=== PATIENT | male | born 1945 | race Caucasian/White ===

== ENCOUNTER 2025-06-11 17:00 | Inpatient (IN) | payer OTHER ==
[2025-06-11] MEDS ORDERED: ASPIRIN 81 MG CHEWABLE TABLET ONE (17:24)
[2025-06-11 17:44] LABS: Absolute Lymphocytes (CBC) 1.9 K/uL (0.7-4.9); Hematocrit 38.6 % (39.6-49.0); Hemoglobin 13.2 g/dL (13.6-17.9); MCH 31.4 pg (27.0-35.0); MCHC 34.2 g/dL (32.0-36.0); MCV 91.9 fL (80-100); MPV 7.7 fL (7.6-11.3); Nucleated RBC Absolute Count 0.0 (0-0); Nucleated Red Blood Cells % 0.1 % (0-0); RBC Red Blood Cell Count 4.20 M/uL (4.33-5.43); White Blood Count 6.80 thou/uL (4.3-10.9)
[2025-06-11 18:00] LABS: ALT/SGPT 33.0 U/L (16-61); AST/SGOT 18.0 U/L (15-37); Albumin 3.4 g/dL (3.4-5.0); Albumin/Globulin Ratio 1.2 (1.1-1.8); Alkaline Phosphatase 80.0 U/L (45-117); Anion Gap 8.7 mEq/L (5.0-15.0); BUN Blood Urea Nitrogen 27.0 mg/dL (7-18); Bilirubin Indirect, Calculated 0.3 mg/dL (0.2-0.8); Globulin 2.9 g/dL (2.3-3.5); Glucose Level 93.0 mg/dL (74-106); Magnesium 2.1 mg/dL (1.6-2.4); NT PRO-BNP 274.0 pg/mL (<450); Potassium 4.7 mEq/L (3.5-5.1); Troponin High Sensitivity 14.6 pg/mL (<58.9)
--- NOTE | 2025-06-11 18:20 | ER ---
Nurse's Notes [facility] Name: Peter Hidalgo Age: 79 yrs Sex: Male : 1945 Arrival Date: 06/11/2025 Time: 17:00 Bed 15 Private MD: Diagnosis: Chest pain, unspecified;Bradycardia, unspecified Presentation: 06/11 17:12 Chief complaint: Patient states: I started having intermittent chest pain this morning. jb4 Last night my b/p was in the 190's I took my clonidine to try and bring it down. My main concern today is my blood pressure fluctuating and going so high. Coronavirus screen: At this time, the client does not indicate any symptoms associated with coronavirus-19. Ebola Screen: No symptoms or risks identified at this time. Initial Sepsis Screen: Does the patient meet any 2 criteria? No. Patient's initial sepsis screen is negative. Does the patient have a suspected source of infection? No. Patient's initial sepsis screen is negative. Risk Assessment: Do you want to hurt yourself or someone else? Patient reports no desire to harm self or others. Onset of symptoms was June 10, 2025. Transition of care: patient was not received from another setting of care. 17:12 Method Of Arrival: Ambulatory jb4 17:12 Acuity: NORMA 2 jb4 Historical: - Allergies: 17:14 PCN; jb4 17:14 lincomycin; jb4 - PMHx: 17:14 HTN; gout; jb4 - PSHx: 17:14 Quadruple bypass; heart stents x 3; jb4 - Immunization history:: Adult Immunizations up to date. - Infectious Disease History:: Denies. - Social history:: Smoking status: Patient denies any tobacco usage or history of. Screenin:43 [facility] ED Fall Risk Assessment (Adult) History of falling in the last 3 months, me1 including since admission No falls in past 3 months (0 pts) Confusion or Disorientation No (0 pts) Intoxicated or Sedated No (0 pts) Impaired Gait No (0 pts) Mobility Assist Device Used No (0 pt) Altered Elimination No (0 pt) Score/Fall Risk Level 0 - 2 = Low Risk Maintained a safe environment, Provided non-skid footwear, Hourly rounding (assess needs \T\ fall precautionary measures) done. Abuse screen: Denies threats or abuse. Nutritional screening: No deficits noted. Tuberculosis screening: No symptoms or risk factors identified. Assessment: 17:43 General: Appears in no apparent distress. comfortable, Behavior is calm, cooperative, me1 appropriate for age, Reports I started having intermittent chest pain this morning. Last night my b/p was in the 190's I took my clonidine to try and bring it down. My main concern today is my blood pressure fluctuating and going so high. Pain: Complains of pain in anterior aspect of left upper chest Pain does not radiate. Pain currently is 0 out of 10 on a pain scale. at worst was 3 out of 10 on a pain scale. Quality of pain is described as pinching Pain began this morning Is intermittent. Neuro: Level of Consciousness is awake, alert, obeys commands, Oriented to person, place, time, situation, Appropriate for age. Cardiovascular: Reports chest pain, shortness of breath, Patient's skin is warm and dry. Respiratory: Reports shortness of breath on exertion Airway is patent Respiratory effort is even, unlabored, Respiratory pattern is regular, symmetrical. GI: No signs and/or symptoms were reported involving the gastrointestinal system. : No signs and/or symptoms were reported regarding the genitourinary system. EENT: No signs and/or symptoms were reported regarding the EENT system. Derm: Skin is intact, is healthy with good turgor, Skin is normal. Musculoskeletal: Circulation, motion, and sensation intact. Range of motion: intact in all extremities. 19:03 General: received report from staff sonographer, all questions answered. kt5 19:17 Reassessment: Patient appears in no apparent distress at this time. Patient and/or kt5 family updated on plan of care and expected duration. Pain level reassessed. Patient is alert, oriented x 3, equal unlabored respirations, skin warm/dry/pink. pt eating and drinking w/o complications Patient denies pain at this time. Patient states feeling better. Patient states symptoms have improved. 19:24 General: admit md at for eval. kt5 20:49 Reassessment: Patient appears in no apparent distress at this time. Patient and/or kt5 family updated on plan of care and expected duration. Pain level reassessed. Patient is alert, oriented x 3, equal unlabored respirations, skin warm/dry/pink. Patient denies pain at this time. Patient states feeling better. Patient states symptoms have improved. Vital Signs: 17:12 BP 137 / 48; Pulse 38; Resp 16; Temp 97.6(O); Pulse Ox 97% on R/A; Weight 102.06 kg jb4 (R); Height 5 ft. 10 in. (R); 17:45 BP 119 / 46; Pulse 38; Resp 12; Pulse Ox 98% ; me1 18:45 BP 150 / 53; Pulse 36; Resp 16; Pulse Ox 98% ; me1 19:18 BP 164 / 54; Pulse 45; Resp 18 S; Pulse Ox 97% on R/A; kt5 20:49 BP 137 / 96; Pulse 40; Resp 18 S; Temp 98.6; Pulse Ox 95% on R/A; Pain 0/10; kt5 17:12 Body Mass Index 32.28 (102.06 kg, 177.8 cm) jb4 20:49 Pain Scale: Adult kt5 18:45 ROJAS Jimenez aware of bradycardia down to mid 30s. al1 ED Course: 17:02 Patient arrived in ED. al6 17:03 Cyn Beatty, RASC is PHCP. kb 17:03 Radha Brian MD is Attending Physician. kb 17:14 Triage completed. jb4 17:14 Arm band placed on right wrist. jb4 17:22 Yaneli Valdez, RN is Primary Nurse. me1 17:23 EKG done, by ED staff, reviewed by Cyn DRAKE. me1 17:26 Initial lab(s) drawn, by al, sent to lab. Inserted saline lock: 20 gauge in left rk3 antecubital area, using aseptic technique. Blood collected. Flushed with 10 mL NS. 17:43 Patient has correct armband on for positive identification. Bed in low position. Call al1 light in reach. Side rails up X2. Provided Education on: POC. Verbalized understanding.. Client placed on continuous cardiac and pulse oximetry monitoring. NIBP monitoring applied. director geothermal operations on. Pulse ox on. NIBP on. 17:43 No provider procedures requiring assistance completed. Patient maintains SpO2 me1 saturation greater than 95% on room air. 18:01 XRAY Chest (1 view) In Process Unspecified. EDMS 18:19 Holden, Azfar, MD is Hospitalizing Provider. kb Administered Medications: 17:30 Drug: Aspirin PO Chewable Tablet 324 mg PO once; 81 mg tablets x 4 Route: PO; me1 17:42 Follow up: Response: No adverse reaction me1 Medication: 17:43 VIS not applicable for this client. me1 Outcome: 18:19 Decision to Hospitalize by Provider. kb 21:16 Patient left the ED. kt5 Signatures: Dispatcher [employer] EDCyn Marie, HEAT TREAT OPERATOR-C HEAT TREAT OPERATOR-Armen Araiza, RN RN jb4 Yaneli Valdez, RN RN me1 Cecily Baez al6 Jeanne Porras rk3 Kathy العراقي, RN RN kt5 Corrections: (The following items were deleted from the chart) 17:43 17:12 Chief complaint: Patient states: I started having intermittent chest pain this me1 morning. Last night my b/p was in the 190's I took my clonidine to try and bring it down. My main concern today is my blood pressure fluctuating and going so high. jb4
--- NOTE | 2025-06-11 18:20 | EDPHYS ---
Physician Documentation [facility] Name: Peter Hidalgo Age: 79 yrs Sex: Male : 1945 Arrival Date: 06/11/2025 Time: 17:00 Bed 15 Private MD: ED Physician Radha Brian HPI: 06/11 17:04 This 79 yrs old Male presents to ER via Unassigned with complaints of High Blood kb Pressure, Chest Pain. 17:04 Pt is a 79 year old male who presents for high blood pressure that started last night, kb up to 190 systolic. Has clonidine to take as needed so he took that last night and today. Reports bilateral lower extremity swelling for 5 days. [facility]CP [facility]. Reports intermittent chest pain today, as well as shortness of breath and weakness. . Historical: - Allergies: 17:14 PCN; jb4 17:14 lincomycin; jb4 - PMHx: 17:14 HTN; gout; jb4 - PSHx: 17:14 Quadruple bypass; heart stents x 3; jb4 - Immunization history:: Adult Immunizations up to date. - Infectious Disease History:: Denies. - Social history:: Smoking status: Patient denies any tobacco usage or history of. ROS: 17:06 Constitutional: As per HPI kb Exam: 17:27 Constitutional: This is a well developed, well nourished patient who is awake, alert, kb and in no acute distress. Head/Face: Normocephalic, atraumatic. ENT: Moist Mucous membranes Respiratory: Respirations even and unlabored. No increased work of breathing. Talking in full sentences Abdomen/GI: Soft, non-tender. No distention Skin: Warm, dry with normal turgor. Normal color. MS/ Extremity: Pulses equal, no cyanosis. Neurovascular intact. Full, normal range of motion. Neuro: Awake and alert, GCS 15, oriented to person, place, time, and situation. 17:27 Cardiovascular: Rate: bradycardic, 17:27 ECG was reviewed by the Attending Physician. Vital Signs: 17:12 BP 137 / 48; Pulse 38; Resp 16; Temp 97.6(O); Pulse Ox 97% on R/A; Weight 102.06 kg jb4 (R); Height 5 ft. 10 in. (R); 17:45 BP 119 / 46; Pulse 38; Resp 12; Pulse Ox 98% ; me1 18:45 BP 150 / 53; Pulse 36; Resp 16; Pulse Ox 98% ; me1 19:18 BP 164 / 54; Pulse 45; Resp 18 S; Pulse Ox 97% on R/A; kt5 20:49 BP 137 / 96; Pulse 40; Resp 18 S; Temp 98.6; Pulse Ox 95% on R/A; Pain 0/10; kt5 17:12 Body Mass Index 32.28 (102.06 kg, 177.8 cm) jb4 20:49 Pain Scale: Adult kt5 18:45 ROJAS Jimenez aware of bradycardia down to mid 30s. me1 MDM: 17:04 Medical Screening Exam initiated kb 18:17 Differential diagnosis: hypertensive crisis, Malignant HTN, acute mi, arrhythmia. Data kb reviewed: vital signs, nurses notes. Consideration of Admission/Observation Patient was admitted/placed on observation. Escalation of care including admission/observation considered. Management of patient was discussed with the following: Hospitalist: CORINNA Peacock accepts pt for admission under Dr Hatch. Print Shop Chief Clerk: Dr Roth accepts pt for consult. "DC clonidine and observe". Historians other than the Patient: Spouse/Significant Other: . Counseling: I had a detailed discussion with the patient and/or guardian regarding the historical points, exam findings, and any diagnostic results supporting the discharge/admit diagnosis, lab results, radiology results, the need for further work-up and treatment in the hospital. 06/11 17:09 Order name: Basic Metabolic Panel; Complete Time: 18:01 kb 06/11 17:09 Order name: CBC with Diff; Complete Time: 17:49 kb 06/11 17:09 Order name: LFT's; Complete Time: 18:01 kb 06/11 17:09 Order name: Magnesium; Complete Time: 18:01 kb 06/11 17:09 Order name: NT PRO-BNP; Complete Time: 18:01 kb 06/11 17:09 Order name: Troponin HS; Complete Time: 18:01 kb 06/11 20:07 Order name: Basic Metabolic Panel EDMS 06/11 20:07 Order name: Basic Metabolic Panel EDMS 06/11 20:07 Order name: CBC with Automated Diff EDMS 06/11 20:07 Order name: CBC with Automated Diff EDMS 06/11 20:07 Order name: Troponin High Sensitivity [facility] 06/11 20:07 Order name: Troponin High Sensitivity [facility] 06/11 20:07 Order name: Troponin High Sensitivity [facility] 06/11 20:07 Order name: Troponin High Sensitivity [facility] 06/11 20:07 Order name: Troponin High Sensitivity [facility] 06/11 17:09 Order name: XRAY Chest (1 view); Complete Time: 18:54 kb 06/11 20:07 Order name: Echo with Doppler [facility] 06/11 20:07 Order name: EKG Electrocardiogram [facility] 06/11 20:07 Order name: EKG Electrocardiogram [facility] 06/11 20:07 Order name: EKG Electrocardiogram [facility] 06/11 20:07 Order name: EKG Electrocardiogram [facility] 06/11 17:09 Order name: Cardiac monitoring; Complete Time: 17:30 kb 06/11 17:09 Order name: EKG - Nurse/Tech; Complete Time: 17:22 kb 06/11 17:09 Order name: IV Saline Lock; Complete Time: 17:27 kb 06/11 17:09 Order name: Labs collected and sent; Complete Time: 17:27 kb 06/11 17:09 Order name: O2 Per Protocol; Complete Time: 17:22 kb 06/11 17:09 Order name: O2 Sat Monitoring; Complete Time: 17:22 kb EC:27 Rate is 39 beats/min. Rhythm is regular. QRS [place] is Normal. [place] interval is prolonged kb at 294 msec. QRS interval is normal at 134 msec. QT interval is normal at 371 msec. Administered Medications: 17:30 Drug: Aspirin PO Chewable Tablet 324 mg PO once; 81 mg tablets x 4 Route: PO; me1 17:42 Follow up: Response: No adverse reaction me1 Disposition Summary: 06/11/25 18:19 Hospitalization Ordered Notes: Hospitalization Status: Observation kb Provider: Jhony Hatch Location: Telemetry/MedSurg (observation) kb Condition: Stable kb Problem: new kb Symptoms: are unchanged kb Bed/Room Type: Standard Room Assignment: 230(06/11/25 20:00) rv1 Diagnosis - Chest pain, unspecified kb - Bradycardia, unspecified kb Forms: - Medication Reconciliation Form kb - SBAR form kb - Leadership Thank You Letter kb Signatures: Dispatcher [employer] EDCyn Marie TILE ERECTOR-C TILE ERECTOR-Ckb Armen Patel, RN RN jb4 Deborah Kinney rv1 Yaneli Valdez, RN RN me1 Corrections: (The following items were deleted from the chart) 17:10 17:10 BASIC METABOLIC PANEL+C.LAB.BRZ ordered. EDMS EDMS 17:10 17:10 CBC+H.LAB.BRZ ordered. EDMS EDMS 17:10 17:10 HEPATIC FUNCTION+C.LAB.BRZ ordered. EDMS EDMS 17:10 17:10 MAGNESIUM+C.LAB.BRZ ordered. EDMS EDMS 17:10 17:10 PROBNP+C.LAB.BRZ ordered. EDMS EDMS 17:10 17:10 Troponin High Sensitivity+C.LAB.BRZ ordered. EDMS EDMS 17:10 17:10 Chest Single View+RAD.RAD.BRZ ordered. EDMS EDMS 20:00 18:19 kb rv1
--- NOTE | 2025-06-11 18:42 | RAD REPORT ---
EXAMINATION: ONE VIEW CHEST XR CLINICAL INDICATION: Male, 79 years old.,CHEST PAIN TECHNIQUE: Frontal chest projection is submitted. Examination is limited by patient positioning and t echnique. COMPARISON: 05/19/2023 FINDINGS: The lungs are grossly clear although suboptimal inspiratory effort somewhat limits evaluation. No pn eumothorax or sizable effusion. The heart is moderate normal in size. Mediastinal contours are unchanged with sequelae of CABG. IMPRESSION: No acute intrathoracic abnormalities.
[2025-06-11] MEDS ORDERED: NITROGLYCERIN 0.4 MG/TAB SL PRN (20:01)
--- NOTE | 2025-06-11 20:05 | P.HP ---
Certification for Inpatient Patient admitted to: Observation With expected LOS: <2 Midnights Patient will require the following post-hospital care: None Practitioner: I am a practitioner with admitting privileges, knowledge of patient current condition, hospital course, and medical plan of care. Services: Services provided to patient in accordance with Admission requirements found in Title 42 Section 412.3 of the Code of Federal Regulations Patient History Date of Service: 06/11/25 Reason for admission: Chest pain, bradycardia, Flutter, and hypertension. History of Present Illness: Patient is a pleasant [id number] male, with past medical history of essential hypertension, gout, BPH, CAD, myocardial infarction with coronary stents x 3, who presents to the ER complaining of elevated blood pressure last night of 190/69, heart Flutter, and chest pain. Patient states last night he was not feeling well so he checked his blood pressure was 190/69, states he took all of his blood pressure medications, states he rechecked his BP today and was much better. States this morning he started feeling like his heart was fluttering, with associated chest pain and no shortness of breath. Patient denies of any prior history of Aflutter or atrial fibrillation. Patient states his chest pain continued with the fluttering throughout most of the day which then prompted him to report to ER. Patient states when he walks at times he has some shortness of breath and feels dizzy with no syncope. Patient describes his chest pain as tight and initial pain scale of 6/10. While in ER patient heart rate was bradycardia going down at times to 30s to the 40s but remains asymptomatic. According to report received from ER SEAT COVER CUTTER, she states she contacted rn supplemental Dr. Roth regarding patient chest pain and bradycardia, he instructed her to discontinue patient clonidine. During admission assessment, patient was fully awake, alert and oriented x 3, denies of any chest pain, or shortness of breath at this time. Patient heart rate still in the 30s at times 40s to 50s, and remains asymptomatic at this time. Patient initial troponin is normal, EKG with no ST elevation. Course in ER. Impression: No acute intrathoracic abnormalities. Allergies Penicillins Allergy (Verified 06/11/25 21:49) Itching/Hives/Rash Home Medications: Allopurinol 300 mg PO BREAKFAST 06/11/25 Aspirin 81 mg PO BREAKFAST 06/11/25 Doxycycline Hyclate 1 cap PO BEDTIME 06/11/25 Nifedipine [Nifedipine ER] 30 mg PO BREAKFAST 06/11/25 Olmesartan Medoxomil 40 mg PO BEDTIME 06/11/25 Tamsulosin [Flomax] 0.4 mg PO BEDTIME 06/11/25 - Past Medical/Surgical History -: Gout. -: Myocardial infarction. -: CAD. -: Essential hypertension. -: BPH. -: Right knee arthroplasty. -: Right wrist surgery. -: Stents placement x 3. -: Quadruple bypass. - Family History Mother -: Heart disease Brother -: Heart disease - Social History Smoking Status: Never smoker Alcohol use: Yes CD- Drugs: No Caffeine use: Yes Place of Residence: Home Review of Systems 10-point ROS is otherwise unremarkable Cardiovascular: Chest Pain, Other (Flutter, hypertensive, bradycardia.) Gastrointestinal: Nausea, Vomiting, Abdominal Pain Physical Examination - Physical Exam General: Alert, In no apparent distress, Oriented x3, Cooperative HEENT: Atraumatic, Normocephalic, PERRLA, Mucous membr. moist/pink, Sclerae nonicteric Neck: Supple, 2+ carotid pulse no bruit, No LAD, Without JVD or thyroid abnormality Respiratory: Clear to auscultation bilaterally, Normal air movement Cardiovascular: No edema, Normal pulses, Regular rate/rhythm, Normal S1 S2, No gallops, No rubs, Systolic murmur Capillary refill: <2 Seconds Gastrointestinal: Normal bowel sounds, Soft and benign, W/out hepatomegaly, No ascites, No tenderness, No masses, No rebound, No guarding, Distended (Distended secondary to obesity.) Musculoskeletal: No clubbing, No swelling, No contractures, No erythema, No tenderness, No warmth Integumentary: No rashes, No breakdown, No significant lesion, No tenderness/swelling, No erythema, No warmth, No cyanosis Neurological: Normal gait, Normal speech, Normal strength at 5/5 x4 extr, Normal tone, Sensation intact, Cranial nerves 3-12 intact, Normal reflexes 2+, Normal affect, Other (Hard of hearing. Uses a hearing aid.) Lymphatics: No axilla or inguinal lymphadenopathy - Studies Laboratory Data (last 24 hrs) 06/11/25 06/11/25 17:21 17:21 WBC 6.80 Hgb 13.2 L Hct 38.6 L Plt Count 206 Sodium 142 Potassium 4.7 BUN 27 H Creatinine 1.28 Glucose 93 Magnesium 2.1 Total Bilirubin 0.5 AST 18 ALT 33 Alkaline Phosphatase 80 Male Exam - Male Exam Inguinal exam: No hernias, Inguinal lymph node Prostate: Other (BPH.) Assessment and Plan - Plan Patient is a 79-year-old male who reports to ER complaining of chest pain, elevated blood pressure, Aflutter, and patient also bradycardia. (1)Chest pain, bradycardia, and hypertension. Patient is asymptomatic bradycardia -Consult rn supplemental. -Nitro sublingual 0.4 mg as needed every 5 minutes x 3. -Troponin every 8 hours x 3. -EKG every 8 hours x 3. -Order echocardiogram. -Will avoid morphine IV administered at this time due to patient bradycardia. -Continue nifedipine XL 30 mg p.o. daily. -Continue olmesartan 40 mg p.o. at bedtime. -Telemetry. (2)Chronic gout. -Continue allopurinol 30 mg p.o. daily. (3)Chronic BPH. -Continue tamsulosin 0.4 mg p.o. nightly. (4) DVT prophylaxis -Lovenox 40 mg subcu daily. (4)Explained entire treatment plan to the patient and present at the bedside, solicited questions answered and voiced understanding. Discharge Plan: Home Plan to discharge in: 72 Hours - Advance Directives Does patient have a Living Will: No Does patient have a Durable POA for Healthcare: No - Code Status/Comfort Care Code Status Assessed: Yes Code Status: Full Code Critical Care: No Time Spent Managing Pts Care (In Minutes): 55
[2025-06-11 21:54] VITALS: O2SAT 95
[2025-06-12] MEDS: HYDRALAZINE HCL 20 MG/ML VIAL IV ONE (04:24)
[2025-06-12 04:41] VITALS: BMI 32.3
[2025-06-12 06:02] LABS: Absolute Lymphocytes (CBC) 1.4 K/uL (0.7-4.9); Hematocrit 40.8 % (39.6-49.0); Hemoglobin 14.0 g/dL (13.6-17.9); MCH 31.5 pg (27.0-35.0); MCHC 34.2 g/dL (32.0-36.0); MCV 92.1 fL (80-100); MPV 7.8 fL (7.6-11.3); Nucleated RBC Absolute Count 0.0 (0-0); Nucleated Red Blood Cells % 0.0 % (0-0); RBC Red Blood Cell Count 4.43 M/uL (4.33-5.43); White Blood Count 5.20 thou/uL (4.3-10.9)
[2025-06-12 06:18] LABS: Anion Gap 8.2 mEq/L (5.0-15.0); BUN Blood Urea Nitrogen 24.0 mg/dL (7-18); Glucose Level 88.0 mg/dL (74-106); Potassium 4.2 mEq/L (3.5-5.1)
[2025-06-12] MEDS: NIFEDIPINE XL 30 MG TABLET PO SCH (08:00)
[2025-06-12] MEDS: ENOXAPARIN 40 MG/0.4 ML SQ SCH (09:10)
[2025-06-12] MEDS: ASPIRIN EC 81 MG TAB PO SCH (09:10)
--- NOTE | 2025-06-12 10:24 | P.PN ---
Date of Service: 06/12/25 Subjective: Continue with bradycardia, HR 30-40s Asymptomatic denies chest pain or shortness of breath Physical Exam: GEN: Alert, oriented, NAD CV: Bradycardia, no edema Pulm: Nonlabored respirations on room air, clear bilaterally ABD: soft, nontender, nondistended Neuro: Normal speech, normal affect Problem List: Chest pain Bradycardia CAD s/p PCI x3 and CABG Hx a-fib/a-flutter Hypertension BPH Hx gout on admission, presents with chest pain associated with fluttering sensation. In ER HR was noted to be in 30-40s in the ED. Asymptomatic. Unclear etiology. Could be medication related. Cardiology consulted Hold Clonidine, nifedipine. Avoid AVN blocking agents add hydralazine 50mg q8h consider 10mg amlodipine if BP still high Monitor BP/HR closely Trend troponins - negative x2 so far Echo ordered to eval EF / stenosis Resume home valsartan, Flomax, allopurinol VTE: Lovenox Code: Full Dispo: Home, ~1 day Pending Stable BP/HR after medication adjustments Time Spent Managing Pts Care (In Minutes): 55
--- NOTE | 2025-06-12 11:36 | P.CNS ---
Date of Consult: 06/12/25 Chief Complaint: Chest pain, bradycardia, Flutter, and hypertension. History of Present Illness: Patient with PMH of CAD s/p CABG x4 followed by PCI presented with high BP and flutter sensation in chest, cardiology consulted for bradycardia, patient denies chest pain, no breathing problems, no syncope. Allergies Penicillins Allergy (Verified 06/11/25 21:49) Itching/Hives/Rash Home medications list reviewed: Yes Home Medications: Allopurinol 300 mg PO BREAKFAST 06/11/25 Aspirin 81 mg PO BREAKFAST 06/11/25 Doxycycline Hyclate 1 cap PO BEDTIME 06/11/25 Nifedipine [Nifedipine ER] 30 mg PO BREAKFAST 06/11/25 Olmesartan Medoxomil 40 mg PO BEDTIME 06/11/25 Tamsulosin [Flomax] 0.4 mg PO BEDTIME 06/11/25 - Past Medical/Surgical History -: Gout. -: Myocardial infarction. -: CAD. -: Essential hypertension. -: BPH. -: Right knee arthroplasty. -: Right wrist surgery. -: Stents placement x 3. -: Quadruple bypass. - Family History Mother Medical History: Heart disease Brother Medical History: Heart disease - Social History Alcohol use: Yes CD- Drugs: No Caffeine use: Yes Place of Residence: Home Review of Systems 10-point ROS is otherwise unremarkable Physical Examination Temp Pulse Resp BP Pulse Ox 97.6 F 36 L 20 175/74 H 96 06/12/25 08:00 06/12/25 08:00 06/12/25 08:00 06/12/25 08:00 06/12/25 08:00 General: Alert, In no apparent distress HEENT: Atraumatic, PERRLA, Mucous membr. moist/pink, EOMI, Sclerae nonicteric Neck: Supple, 2+ carotid pulse no bruit, No LAD, Without JVD or thyroid abnormality Respiratory: Clear to auscultation bilaterally, Normal air movement Cardiovascular: Regular rate/rhythm, Normal S1 S2 Gastrointestinal: Normal bowel sounds, No tenderness Musculoskeletal: No tenderness Integumentary: No rashes Neurological: Normal gait, Normal speech, Normal tone, Normal affect Lymphatics: No axilla or inguinal lymphadenopathy Laboratory Data (last 24 hrs) 06/12/25 06/12/25 06/11/25 05:55 05:55 17:21 WBC 5.20 6.80 Hgb 14.0 13.2 L Hct 40.8 38.6 L Plt Count 205 206 Sodium 143 Potassium 4.2 BUN 24 H Creatinine 1.08 Glucose 88 Magnesium Total Bilirubin AST ALT Alkaline Phosphatase 06/11/25 17:21 WBC Hgb Hct Plt Count Sodium 142 Potassium 4.7 BUN 27 H Creatinine 1.28 Glucose 93 Magnesium 2.1 Total Bilirubin 0.5 AST 18 ALT 33 Alkaline Phosphatase 80 - Problems (1) Bradycardia Current Visit: Yes Status: Acute Plan: patient tele show sinus bradycardia, no pauses this can be secondary to medications like Clonidine and CCB, Continue to hold continue to monitor on tele (2) CAD (coronary artery disease) of artery bypass graft Current Visit: Yes Status: Acute Plan: patient denies chest pain, troponin negative x3 continue ASA 81 mg daily continue Repatha (3) HTN (hypertension) Current Visit: Yes Status: Acute Plan: BP still high avoid AVN blocking agents due to bradycardia start Hydralazine 50 mg po TID Continue Vlasartan may add Norvasc 10 mg daily if BP still high.
[2025-06-12] MEDS: HYDRALAZINE HCL 25 MG TABLET PO SCH ×2 (16:00→16:03)
[2025-06-12] MEDS: HYDRALAZINE HCL 25 MG TABLET ONE (16:01)
[2025-06-12] MEDS: VALSARTAN 160 MG TAB PO SCH (21:42)
[2025-06-12] MEDS: DOCUSATE NA 100 MG CAP PO SCH (21:44)
[2025-06-12] MEDS: TAMSULOSIN 0.4 MG SR CAP PO SCH (21:44)
[2025-06-13 05:01] LABS: Absolute Lymphocytes (CBC) 1.4 K/uL (0.7-4.9); Hematocrit 40.5 % (39.6-49.0); Hemoglobin 14.0 g/dL (13.6-17.9); MCH 31.7 pg (27.0-35.0); MCHC 34.6 g/dL (32.0-36.0); MCV 91.5 fL (80-100); MPV 8.2 fL (7.6-11.3); Nucleated RBC Absolute Count 0.0 (0-0); Nucleated Red Blood Cells % 0.1 % (0-0); RBC Red Blood Cell Count 4.43 M/uL (4.33-5.43); White Blood Count 6.30 thou/uL (4.3-10.9)
[2025-06-13 05:25] LABS: Anion Gap 8.3 mEq/L (5.0-15.0); BUN Blood Urea Nitrogen 23.0 mg/dL (7-18); Glucose Level 96.0 mg/dL (74-106); Magnesium 2.2 mg/dL (1.6-2.4); Potassium 4.3 mEq/L (3.5-5.1); Troponin High Sensitivity 24.3 pg/mL (<58.9)
--- NOTE | 2025-06-13 10:05 | P.PN ---
Subjective Date of Service: 06/13/25 Chief Complaint: Chest pain, bradycardia, Flutter, and hypertension. Subjective: No new changes, No C/O voiced, Tolerating diet, Ambulating, Improving Review of Systems 10-point ROS is otherwise unremarkable Physical Examination - Vital Signs Temperature: 97.7 F Blood Pressure: 160/80 Pulse: 54 Respirations: 18 Pulse Ox (%): 98 - Physical Exam General: Alert, In no apparent distress HEENT: Atraumatic, PERRLA, EOMI Neck: Supple, JVD not distended Respiratory: Clear to auscultation bilaterally, Normal air movement Cardiovascular: Regular rate/rhythm, Normal S1 S2 Gastrointestinal: Normal bowel sounds, No tenderness Musculoskeletal: No tenderness Integumentary: No rashes Neurological: Normal speech, Normal tone, Normal affect Lymphatics: No axilla or inguinal lymphadenopathy - Studies Medications List Reviewed: Yes Assessment And Plan - Current Problems (Diagnosis) (1) Bradycardia Current Visit: Yes Status: Acute Plan: patient tele show sinus bradycardia, no pauses this can be secondary to medications like Clonidine and CCB, Continue to hold Tele overnight no pauses, sinus bradycardia outpatient follow up with cardiology for event monitor (2) CAD (coronary artery disease) of artery bypass graft Current Visit: Yes Status: Acute Plan: patient report hisotry of CABG followed by PCI patient denies chest pain, troponin negative x3 continue ASA 81 mg daily continue Repatha (3) HTN (hypertension) Current Visit: Yes Status: Acute Plan: BP is better avoid AVN blocking agents due to bradycardia continue Hydralazine 50 mg po TID Continue home dose Olmesartan at discharge may add Norvasc 10 mg daily if BP still high.
--- NOTE | 2025-06-13 13:53 | P.DS ---
Admission Date: 06/12/25 Discharge Date: 06/13/25 Disposition: ROUTINE DISCHARGE Discharge Condition: FAIR Reason for Admission: Chest pain, bradycardia, Flutter, and hypertension. Hospital Course: Problem List: Chest pain Bradycardia CAD s/p PCI x3 and CABG Hx a-fib/a-flutter Hypertension BPH Hx gout Patient with a medical history of essential hypertension, gout, BPH, CAD, myocardial infarction with coronary stents x 3, who presents to the ER complaining of elevated blood pressure last night of 190/69, palpitation and chest pain and shortness of breath on exertion. While in ER patient heart rate was bradycardia going down at times to 30s to the 40s. Cardiology recommended to discontinue patient's clonidine. During admission assessment, patient was fully awake, alert and oriented x 3, denies of any chest pain, or shortness of breath at this time. Patient's initial troponin is negative, EKG with no ST elevation. Patient was hospitalized, seen by cardiology, clonidine and nifedipine discontinued and patient placed on hydralazine. Home dose valsartan was continued. Blood pressure improved. Heart rate also improved to the 60s. Patient states he has follow-up with his PCP at the [facility] next week. Patient informed to check his blood pressure daily and to keep a log for his PCP to review and adjust antihypertensives as needed. Vital Signs/Physical Exam: Temp Pulse Resp BP Pulse Ox 97.7 F 54 18 160/80 H 98 06/13/25 10:05 06/13/25 10:05 06/13/25 10:05 06/13/25 10:05 06/13/25 10:05 General: Alert, In no apparent distress, Oriented x3 HEENT: Mucous membr. moist/pink, Sclerae nonicteric Neck: Supple, JVD not distended Respiratory: Clear to auscultation bilaterally, Normal air movement Cardiovascular: No edema, Regular rate/rhythm, Normal S1 S2 Gastrointestinal: Normal bowel sounds, Soft and benign Musculoskeletal: No swelling Integumentary: No rashes, No cyanosis Neurological: Normal strength at 5/5 x4 extr, Cranial nerves 3-12 intact Laboratory Data at Discharge: WBC 6.30 thou/uL (4.3-10.9) 06/13/25 04:03 Hgb 14.0 g/dL (13.6-17.9) 06/13/25 04:03 Hct 40.5 % (39.6-49.0) 06/13/25 04:03 Plt Count 240 thou/uL (152-406) 06/13/25 04:03 Sodium 143 mEq/L (136-145) 06/13/25 04:03 Potassium 4.3 mEq/L (3.5-5.1) 06/13/25 04:03 BUN 23 mg/dL (7-18) H 06/13/25 04:03 Creatinine 1.16 mg/dL (0.70-1.30) 06/13/25 04:03 Glucose 96 mg/dL (74-106) 06/13/25 04:03 Magnesium 2.2 mg/dL (1.6-2.4) 06/13/25 04:03 Total Bilirubin 0.5 mg/dL (0.2-1.0) 06/11/25 17:21 AST 18 U/L (15-37) 06/11/25 17:21 ALT 33 U/L (16-61) 06/11/25 17:21 Alkaline Phosphatase 80 U/L (45-117) 06/11/25 17:21 Home Medications: Allopurinol 300 mg PO BREAKFAST 06/11/25 Aspirin 81 mg PO BREAKFAST 06/11/25 Doxycycline Hyclate 1 cap PO BEDTIME 06/11/25 Olmesartan Medoxomil 40 mg PO BEDTIME 06/11/25 Tamsulosin [Flomax*] 0.4 mg PO BEDTIME 06/11/25 Aspirin [Aspirin EC 81 MG] 81 mg PO DAILY #30 tab 06/13/25 Docusate [Colace Cap*] 100 mg PO BID #30 cap 06/13/25 Hydralazine [Apresoline*] 50 mg PO Q8HR #90 tab 06/13/25 Magnesium Citrate [Citroma*] 296 ml PO ONCE #1 btl 06/13/25 New Medications: Hydralazine [Apresoline*] 50 mg PO Q8HR #90 tab Aspirin [Aspirin EC 81 MG] 81 mg PO DAILY #30 tab Magnesium Citrate [Citroma*] 296 ml PO ONCE #1 btl Docusate [Colace Cap*] 100 mg PO BID #30 cap Physician Discharge Instructions: Patient with a medical history of essential hypertension, gout, BPH, CAD, myocardial infarction with coronary stents x 3, who presents to the ER complaining of elevated blood pressure last night of 190/69, palpitation and chest pain and shortness of breath on exertion. While in ER patient heart rate was bradycardia going down at times to 30s to the 40s. Cardiology recommended to discontinue patient's clonidine. During admission assessment, patient was fully awake, alert and oriented x 3, denies of any chest pain, or shortness of breath at this time. Patient's initial troponin is negative, EKG with no ST elevation. Patient was hospitalized, seen by cardiology, clonidine and nifedipine discontinued and patient placed on hydralazine. Home dose valsartan was continued. Blood pressure improved. Heart rate also improved to the 60s. Patient states he has follow-up with his PCP at the [facility] next week. Patient informed to check his blood pressure daily and to keep a log for his PCP to review and adjust antihypertensives as needed. Diet: AHA Activity: Ad sancho [facility]: [facility] [Primary Care Provider] - 1-2 Weeks Time spent managing pt's care (in minutes): 33
[2025-06-13 17:57] VITALS: BP 148/90; TEMP 98.6
[2025-06-13] MEDS: AMLODIPINE 10 MG TAB PO SCH (18:21)
== END 2025-06-13 19:40 | disposition home or self-care (01) | DRG 310 ==
LOC: ER 17:00 → ERHOLD 19:51 → 2ND 21:08 → OBSVTOIN 06-12 10:36
PROVIDERS: ADMIT Hospitalist; ATTEND Internal Medicine
PROC: 5A09457 Assistance with Respiratory Ventilation, 24-96 Consecutive Hours, Continuous Positive Airway Pressure (ICD-10-PCS; principal; 2025-06-11)
DX: R00.1 Bradycardia, unspecified (principal); I10 Essential (primary) hypertension; M1A.9XX0 Chronic gout, unspecified, without tophus (tophi); N40.0 Benign prostatic hyperplasia without lower urinary tract symptoms; I25.10 Atherosclerotic heart disease of native coronary artery without angina pectoris; T46.5X5A Adverse effect of other antihypertensive drugs, initial encounter; I25.2 Old myocardial infarction; Z88.0 Allergy status to penicillin; Z95.5 Presence of coronary angioplasty implant and graft; Z79.82 Long term (current) use of aspirin; Z79.899 Other long term (current) drug therapy; Z96.651 Presence of right artificial knee joint
CPT/HCPCS: 36415; 71045; 80048; 80076; 83735; 83880; 84484; 85025; 93005; 93306; 94660; 99284; G0378; J0360; J1650